=== PATIENT | male | born 1945 | race Caucasian/White ===

== ENCOUNTER 2019-09-21 15:18 | Emergency (ER) | payer MEDICARE, SELFPAY ==
[2019-09-21 15:19] VITALS: BP 134/78; PULSE 112; RESP 18; TEMP 36.6; O2SAT 97; BMI 34.2
--- NOTE | 2019-09-21 16:29 | ED.DCSUM_ITS ---
History of Present Illness Chief Complaint: Wound Narrative: Patient is a 74-year-old male who presents with redness and pain of his right foot. He hit his great toe on a piece of furniture yesterday. He developed redness to the proximal toe last night. This morning he had a blister over the back of the toe as well as redness extending onto the foot. No systemic symptoms such as fevers or vomiting. He is diabetic. He was seen at the urgent care and sent here for further evaluation. Past Medical History - Allergies and Home Meds Allergies/Adverse Reactions: Allergies duloxetine [From Cymbalta] Allergy (Verified 09/21/19 15:22) NEEDS FOLLOW-UP feels out of body hydrocodone Allergy (Verified 09/21/19 15:22) Itching Tetanus Vaccines and Toxoid Allergy (Verified 09/21/19 15:22) Fever and skin rash edema at the site Primary Care Physician: Daljit Belcher MD [Primary Care Provider] - Past Medical History: - - Diabetes, hypertension, hyperlipidemia Review of Systems All systems negative except as indicated General: Denies: Fever Cardiovascular: Denies: Chest pain Respiratory: Denies: Dyspnea Gastrointestinal: Denies: Nausea, Vomiting, Diarrhea Musculoskeletal: Reports: - - Right foot and toe pain and redness Skin: Denies: Rash Neurological: Denies: Headache Physical Exam Vital Signs/Narrative: Vital Signs Temp Pulse Resp BP Pulse Ox 09/21/19 15:19 97.9 F 112 H 18 134/78 H 97 Inital Vital Signs reviewed: Yes General: Well nourished Head: Normocephalic Eyes: EOMI ENT: Moist mucous membranes Neck: Supple Cardiovascular: Regular rhythm, Tachycardia Respiratory: No distress Extremities: - - Patient has ecchymosis of the right first and second toes he has blister over the back of the right great toe and a small area of necrosis no active drainage he does have erythema consistent with cellulitis extending out to the midfoot and towards the second and third digits no functions, no nail avulsion Skin: Normal color Neurological: Alert Psychological: Normal affect Diagnostic/Tx/Re-eval Impressions Foot X-Ray 09/21/19 17:07 IMPRESSION: No visualized acute or significant process Electronically Signed: Loi Rivera MD at 17:28 EDT , Service support , 09/21/19 17:07 Foot min 3 Views [RAD] Stat Laboratory Results 09/21/19 09/21/19 09/21/19 16:59 16:59 17:42 WBC 7.7 RBC 4.65 Hgb 14.8 Hct 44.2 MCV 95.1 H MCH 31.8 MCHC 33.5 RDW Std Deviation 43.9 RDW Coeff of Susi 12.8 Plt Count 184 MPV 9.4 Immature Gran % (Auto) 0.300 Neut % (Auto) 72.8 H Lymph % (Auto) 18.4 L Prentiss % (Auto) 7.5 Eos % (Auto) 0.6 Baso % (Auto) 0.4 Absolute Neuts (auto) 5.6 Absolute Lymphs (auto) 1.42 Nucleated RBC % 0 Sodium Cancelled 140 Potassium Cancelled 4.2 Chloride Cancelled 105 Carbon Dioxide Cancelled 26.0 Anion Gap Cancelled 9 BUN Cancelled 20 H Creatinine Cancelled 1.03 Estim Creat Clear Calc Cancelled 67.01 Est GFR (MDRD) Af Amer Cancelled 91 Est GFR (MDRD) Non-Af Cancelled 75 BUN/Creatinine Ratio Cancelled 19.4 Glucose Cancelled 108 H Calcium Cancelled 9.4 - Medical Decision Making Labs are unremarkable. X-ray shows no acute process. Patient was treated with a dose of IV Unasyn here. I do feel he is appropriate for initial outpatient management with oral antibiotics however he was given clear instructions that if he develops any new or worsening symptoms he should return for reevaluation. I did advise that he follow-up with his primary care physician and he was discharged home. ED Disposition - Plan for ED Patient: Disposition: Home or Assisted Living Diagnosis: Cellulitis of right foot Instructions: ED Cellulitis Prescriptions: Cephalexin [Keflex] 500 mg PO Q6 #40 cap Prescription Printed Referrals: Daljit Belcher MD [Primary Care Provider] -
--- NOTE | 2019-09-21 17:07 | RAD_ITS ---
STUDY: X-RAY - RIGHT FOOT CLINICAL: Male, 74 years old. RIGHT GREAT TOE INFECTION TECHNIQUE: 3 view(s) of the foot. COMPARISON: None. FINDINGS: The bony structures are demineralized. Normal talus, calcaneus, and tarsal bones. Normal visualized subtalar, talonavicular, calcaneocuboid, tarsal and tarsometatarsal articulations. Normal metatarsi. Unremarkable joints. The soft tissue structures are unremarkable. No visualized cortical erosion or bony destruction. No visualized subcutaneous gas. RAD/Foot min 3 Views IMPRESSION: No visualized acute or significant process Electronically Signed: Loi Rivera MD at 17:28 EDT , Service support ,
[2019-09-21 17:18] LABS: Absolute Lymphocyte Count 1.42 X10^3/uL (0.83-4.51); Absolute Neutrophil Count 5.6 X10^3/uL (2.0-7.7); Basophil# 0.03 X10^3/uL; Basophil% 0.4 % (0-1); Eosinophil# 0.05 X10^3/uL; Eosinophils% 0.6 % (0-5); Hematocrit 44.2 % (40-54); Hemoglobin 14.8 g/dL (13.0-16.5); Lymphocyte # 1.42 X10^3/ul (4.0); Lymphocyte % 18.4 % (19-41); Mean Corp Hgb Conc 33.5 g/dL (32-36); Mean Corpuscular Hgb 31.8 pg (27.0-32.0); Mean Corpuscular Volume 95.1 fL (80-94); Mean Platelet Vol. 9.4 fl (6.2-12.0); Monocyte# 0.58 X10^3/uL; Monocyte% 7.5 % (0-10); NRBC Flagged by Analyzer 0 % (0-5); Neutrophil # 5.61 X10^3/uL (2.7-7.7); Neutrophil % 72.8 % (47-70); Platelet Count 184 K/mm3 (150-450); RBC Distribution Width CV 12.8 % (11.6-14.6); RBC Distribution Width SD 43.9 fl (35.1-43.9); Red Blood Count 4.65 M/mm3 (4.6-6.2); White Blood Count 7.7 K/mm3 (4.4-11.0)
[2019-09-21 17:56] VITALS: BP 132/81; PULSE 102; RESP 18; TEMP 36.6; O2SAT 97
[2019-09-21 18:28] LABS: Anion Gap 9 (5-15); BUN 20 mg/dL (7-18); BUN/Creat Ratio 19.4 RATIO (10-20); Calcium,Total 9.4 mg/dL (8.5-10.1); Chloride 105 mmol/L (98-107); Creatinine, Serum 1.03 mg/dL (0.70-1.30); EST Glomerular Filtration Rate 75 mL/min (>60); Est Glom Filt Rate - Afr Amer 91 mL/min (>60); Estimated Creatinine Clearance 67.01 ml/min; Glucose 108 mg/dL (74-106); Potassium 4.2 mmol/L (3.5-5.1); Sodium Level 140 mmol/L (136-145)
[2019-09-21 19:33] VITALS: BP 148/78; PULSE 78; RESP 16; O2SAT 98
== END 2019-09-21 19:39 | disposition home or self-care (01) ==
PROVIDERS: Emergency Provider Emergency Medicine; PCP Internal Medicine
DX: L03.115 Cellulitis of right lower limb (principal); S90.421A Blister (nonthermal), right great toe, initial encounter; S90.111A Contusion of right great toe without damage to nail, initial encounter; W22.03XA Walked into furniture, initial encounter; Y93.9 Activity, unspecified; Y92.9 Unspecified place or not applicable; Y99.9 Unspecified external cause status; E11.9 Type 2 diabetes mellitus without complications; I10 Essential (primary) hypertension; E78.5 Hyperlipidemia, unspecified; Z79.84 Long term (current) use of oral hypoglycemic drugs; Z79.899 Other long term (current) drug therapy; Z88.8 Allergy status to other drugs, medicaments and biological substances; Z88.5 Allergy status to narcotic agent
CPT/HCPCS: 73630; 80048; 85025; 96365; 96366; 99283; A4216; J0295